=== PATIENT | male | born 1955 | race African-American/Black ===

== ENCOUNTER 2020-11-15 02:18 | Inpatient (IN) | payer MEDICARE, MEDICAID ==
[~2020-11-15] VITALS: Ht 182.9 cm; Wt 77.1 kg
[2020-11-15] MEDS ORDERED: ONDANSETRON HCL 4MG/2ML INJ IV STA ×2 (03:16→08:20)
[2020-11-15] MEDS ORDERED: FENTANYL CITRATE/PF 50MCG/ML 2ML VIAL IV ONE (03:30)
[2020-11-15] MEDS ORDERED: SODIUM CHLORIDE 0.9% 1,000 ML IV ONE (03:30)
[2020-11-15 03:45] LABS: HEMATOCRIT. 42.5 % (42.0-52.0); HEMOGLOBIN. 14.1 g/dL (14.0-18.0); MEAN CORPUSCULAR HEMOGLOBIN 32.5 pg (28.0-32.0); MEAN CORPUSCULAR VOLUME 97.8 fL (80.0-94.0); MEAN PLATELET VOLUME 7.6 fl (7.4-10.4); PLATELET 245 x1000/uL (130-400); RED BLOOD CELL COUNT 4.35 mill/uL (4.7-6.1); RED CELL DISTRIBUTION WIDTH 12.8 % (11.6-14.6)
[2020-11-15] MEDS ORDERED: MORPHINE SULFATE 4 MG/ML CPJ (NOT FOR IM USE) IV ONE (04:30)
[2020-11-15 05:16] LABS: PLATELET ESTIMATE NORMAL
[2020-11-15] MEDS ORDERED: IOHEXOL-300 100 ML BOTTLE ONE (05:27)
[2020-11-15] MEDS ORDERED: MORPHINE SULFATE 4 MG/ML CPJ (NOT FOR IM USE) IV STA (08:20)
[2020-11-15] MEDS ORDERED: IOHEXOL 350 MG/ML 200ML INFUS..BTL IV ONE (15:12)
[2020-11-15 15:21] VITALS: BP 138/86
[2020-11-15 16:00] VITALS: BP 138/86
[2020-11-15] MEDS ORDERED: ACETAMINOPHEN 325MG TABLET PO PRN ×2 (17:15)
[2020-11-15] MEDS ORDERED: MAGNESIUM/ALUMINUM HYDROXIDE/SIMETHICONE 30ML UDC PO PRN (17:15)
[2020-11-15] MEDS ORDERED: DIPHENHYDRAMINE 50MG/ML VIAL IV PRN (17:15)
[2020-11-15] MEDS ORDERED: ONDANSETRON HCL 4MG/2ML INJ IV PRN (17:15)
[2020-11-15] MEDS: ENOXAPARIN 40MG/0.4ML SYR SUBCUT SCH (18:35)
[2020-11-15 20:00] VITALS: BP 155/90
[2020-11-15] MEDS: HYDROCODONE/ACETAMINOPHEN 10/325MG TABLET PO PRN (20:35)
[2020-11-15] MEDS: SODIUM CHLORIDE 0.9% INJ 3ML FLUSH IVF SCH (21:31)
[2020-11-16] VITALS: BP 134/76
[2020-11-16 04:00] VITALS: BP 145/82
[2020-11-16] MEDS: HYDROCODONE/ACETAMINOPHEN 10/325MG TABLET PO PRN (06:22)
[2020-11-16] MEDS: SODIUM CHLORIDE 0.9% INJ 3ML FLUSH IVF SCH ×3 (06:22→23:37)
[2020-11-16 07:43] LABS: BASOPHILS % 0.4 % (0.0-2.0); EOSINOPHILS % 0.4 % (0.0-5.0); HEMATOCRIT. 34.4 % (42.0-52.0); HEMOGLOBIN. 11.5 g/dL (14.0-18.0); MEAN CORPUSCULAR HEMOGLOBIN 32.4 pg (28.0-32.0); MEAN CORPUSCULAR VOLUME 97.2 fL (80.0-94.0); MEAN PLATELET VOLUME 8.3 fl (7.4-10.4); MONOCYTES % 13.1 % (2.0-8.0); NEUTROPHILS % 73.1 % (40.0-76.0); PLATELET 175 x1000/uL (130-400); RED BLOOD CELL COUNT 3.54 mill/uL (4.7-6.1); RED CELL DISTRIBUTION WIDTH 12.8 % (11.6-14.6)
[2020-11-16 08:00] VITALS: BP 146/83
[2020-11-16 08:07] LABS: CHLORIDE 108 mEq/L (98-107)
[2020-11-16 08:19] LABS: PHOSPHORUS 3.4 mg/dL (2.5-4.9)
[2020-11-16] MEDS: DOCUSATE SODIUM 100MG CAPSULE PO SCH ×2 (08:43→17:19)
[2020-11-16 12:00] VITALS: BP 142/88
[2020-11-16] MEDS: MORPHINE SULFATE 4 MG/ML CPJ (NOT FOR IM USE) IV PRN (12:50)
[2020-11-16 16:00] VITALS: BP 157/96
[2020-11-16] MEDS: ENOXAPARIN 40MG/0.4ML SYR SUBCUT SCH (17:19)
[2020-11-16 20:00] VITALS: BP 132/84
[2020-11-17] VITALS (7 sets, daily range): BP systolic 148–172; BP diastolic 70–91
[2020-11-17] MEDS: SODIUM CHLORIDE 0.9% INJ 3ML FLUSH IVF SCH ×3 (05:34→21:13)
[2020-11-17] MEDS: CLONIDINE 0.1MG TABLET PO PRN ×2 (06:56→17:43)
[2020-11-17] MEDS: DOCUSATE SODIUM 100MG CAPSULE PO SCH ×2 (09:00→17:00)
[2020-11-17] MEDS: AMLODIPINE 10MG TABLET PO SCH (10:01)
[2020-11-17] MEDS: MORPHINE SULFATE 4 MG/ML CPJ (NOT FOR IM USE) IV PRN (10:24)
[2020-11-17] MEDS: ENOXAPARIN 40MG/0.4ML SYR SUBCUT SCH (17:44)
[2020-11-18] MEDS: MORPHINE SULFATE 4 MG/ML CPJ (NOT FOR IM USE) IV PRN ×2 (01:33→21:46)
[2020-11-18 05:09] VITALS: BP 128/77
[2020-11-18] MEDS: SODIUM CHLORIDE 0.9% INJ 3ML FLUSH IVF SCH ×3 (05:49→21:47)
[2020-11-18 08:00] VITALS: BP 141/69
[2020-11-18] MEDS: AMLODIPINE 10MG TABLET PO SCH (08:55)
[2020-11-18] MEDS: DOCUSATE SODIUM 100MG CAPSULE PO SCH ×3 (08:55→17:00)
[2020-11-18 12:00] VITALS: BP 166/77
[2020-11-18 16:00] VITALS: BP 144/79
[2020-11-18] MEDS: ENOXAPARIN 40MG/0.4ML SYR SUBCUT SCH (19:04)
[2020-11-18] MEDS: MAGNESIUM HYDROXIDE 400MG/5ML 30ML UDC PO PRN (19:04)
[2020-11-18 20:00] VITALS: BP 151/84
[2020-11-19] VITALS: BP 147/82
[2020-11-19 04:00] VITALS: BP 133/75
[2020-11-19 08:00] VITALS: BP 128/70
[2020-11-19] MEDS: DOCUSATE SODIUM 100MG CAPSULE PO SCH ×2 (09:00→16:42)
[2020-11-19] MEDS: AMLODIPINE 10MG TABLET PO SCH (09:21)
[2020-11-19 12:00] VITALS: BP 160/86
[2020-11-19] MEDS: CLONIDINE 0.1MG TABLET PO PRN (14:40)
[2020-11-19] MEDS: SODIUM CHLORIDE 0.9% INJ 3ML FLUSH IVF SCH ×2 (14:41→20:51)
[2020-11-19 16:00] VITALS: BP 146/86
[2020-11-19] MEDS: ENOXAPARIN 40MG/0.4ML SYR SUBCUT SCH (17:00)
[2020-11-19] MEDS: MORPHINE SULFATE 4 MG/ML CPJ (NOT FOR IM USE) IV PRN (17:03)
[2020-11-19 20:00] VITALS: BP 134/76
[2020-11-20] VITALS: BP 128/72
[2020-11-20 04:00] VITALS: BP 131/78
[2020-11-20] MEDS: SODIUM CHLORIDE 0.9% INJ 3ML FLUSH IVF SCH ×3 (05:29→21:00)
[2020-11-20] MEDS: MORPHINE SULFATE 4 MG/ML CPJ (NOT FOR IM USE) IV PRN (05:30)
[2020-11-20 08:00] VITALS: BP 121/79
[2020-11-20] MEDS: DOCUSATE SODIUM 100MG CAPSULE PO SCH ×2 (09:47→17:00)
[2020-11-20] MEDS: AMLODIPINE 10MG TABLET PO SCH (09:48)
[2020-11-20 12:01] VITALS: BP 144/78
[2020-11-20] MEDS: MAGNESIUM HYDROXIDE 400MG/5ML 30ML UDC PO PRN (14:00)
[2020-11-20 16:00] VITALS: BP 125/71
[2020-11-20] MEDS ORDERED: LACTULOSE 20G/30ML UDC PO STA (16:02)
[2020-11-20] MEDS: ENOXAPARIN 40MG/0.4ML SYR SUBCUT SCH (18:07)
[2020-11-20 20:00] VITALS: BP 147/83
[2020-11-21] VITALS: BP 131/78
[2020-11-21 04:00] VITALS: BP_SYST 126; BP_SYST 132; BP_DIAS 58; BP_DIAS 77
[2020-11-21] MEDS: MORPHINE SULFATE 4 MG/ML CPJ (NOT FOR IM USE) IV PRN (04:32)
[2020-11-21] MEDS: SODIUM CHLORIDE 0.9% INJ 3ML FLUSH IVF SCH ×2 (05:11→14:00)
[2020-11-21 08:00] VITALS: BP 141/73
[2020-11-21] MEDS: AMLODIPINE 10MG TABLET PO SCH (08:52)
[2020-11-21] MEDS: DOCUSATE SODIUM 100MG CAPSULE PO SCH ×2 (08:52→17:00)
[2020-11-21 12:00] VITALS: BP 143/87
[2020-11-21 16:00] VITALS: BP 136/95
[2020-11-21] MEDS: ENOXAPARIN 40MG/0.4ML SYR SUBCUT SCH (17:17)
== END 2020-11-21 21:04 | disposition home or self-care (01) | DRG 347 ==
LOC: ER 02:18 → EDBEDREQTM 11:35 → EDBEDREQ 11:35 → ENRESERV 11:58 → 6EST 14:26
PROVIDERS: ADMIT Internal Medicine; ATTEND Internal Medicine
DX: S32.10XA Unspecified fracture of sacrum, initial encounter for closed fracture (principal); S32.502A Unspecified fracture of left pubis, initial encounter for closed fracture; N17.9 Acute kidney failure, unspecified; S30.0XXA Contusion of lower back and pelvis, initial encounter; R65.10 Systemic inflammatory response syndrome (SIRS) of non-infectious origin without acute organ dysfunction; M16.0 Bilateral primary osteoarthritis of hip; S80.212A Abrasion, left knee, initial encounter; S80.211A Abrasion, right knee, initial encounter; S70.212A Abrasion, left hip, initial encounter; S70.211A Abrasion, right hip, initial encounter; S91.312A Laceration without foreign body, left foot, initial encounter; D72.829 Elevated white blood cell count, unspecified; R74.01 Elevation of levels of liver transaminase levels; D64.9 Anemia, unspecified; I12.9 Hypertensive chronic kidney disease with stage 1 through stage 4 chronic kidney disease, or unspecified chronic kidney disease; N18.9 Chronic kidney disease, unspecified; V13.4XXA Pedal cycle driver injured in collision with car, pick-up truck or van in traffic accident, initial encounter; Y93.55 Activity, bike riding; Y92.89 Other specified places as the place of occurrence of the external cause; Y99.8 Other external cause status
CPT/HCPCS: 36415; 70486; 71045; 72170; 72191; 74177; 80048; 80053; 83735; 84100; 85025; 93005; 97110; 97116; 97162; 97166; 97530; 97535; 99285; J1650; J2270; J2405; J3010; J7030; Q9967